=== PATIENT | female | born 1935 | race Hispanic/Latino ===

== ENCOUNTER 2018-10-13 21:45 | Emergency (ER) | payer MEDICARE ==
--- NOTE | 2018-10-13 22:13 | Emergency Department Report ---
HPI - General Time Seen by Provider: 10/13/18 22:00 - HPI HPI: Room 4 The patient is an 83-year-old female presenting with a chief complaint of weakness. The patient is currently at a [facility] states she's felt weak for the past 2-3 days diffusely. Patient states this evening she was unable to get off of her sofa so EMS was called. Patient denies pain of any type. Patient denies chest pain, shortness of breath, headache, nausea/vomiting/diarrhea or fever. Location: [See above] Duration: [See above] Quality: [See above] Severity: [See above] Modifying factors: [see above] Context: [see above] Mode of transportation: [not driving] ED Past Medical Hx - Past Medical History Hx Hypertension: Yes Hx Arthritis: Yes - Surgical History Additional Surgical History: hysterectomy, right hip - Social History Smoking Status: Never Smoker - Medications Home Medications: Home Medications Medication Instructions Recorded Confirmed Last Taken Type Darifenacin Hydrobromide [Enablex] 15 mg PO DAILY PRN #30 tab.er.24h 05/28/14 05/28/14 Unknown Rx Aspirin [Aspirin BABY CHEW TAB] 81 mg PO QDAY #30 tab.chew 06/04/14 Unknown Rx Atenolol [Tenormin] 100 mg PO DAILY #30 tablet 06/04/14 Unknown Rx Atorvastatin [Lipitor] 10 mg PO QHS #30 tab 06/04/14 Unknown Rx Clopidogrel [Plavix] 75 mg PO QDAY #30 tablet 06/04/14 Unknown Rx Losartan [Cozaar] 25 mg PO QPM #30 tablet 06/04/14 Unknown Rx Spironolactone [Aldactone] 50 mg PO QDAY #30 tablet 06/04/14 Unknown Rx amLODIPine [Norvasc] 5 mg PO DAILY #30 tablet 06/04/14 Unknown Rx ED Review of Systems ROS: Stated complaint: GENERAL WEAKNESS Other details as noted in HPI Constitutional: weakness Eyes: denies: eye pain ENT: denies: throat pain Respiratory: denies: shortness of breath Cardiovascular: denies: chest pain Endocrine: no symptoms reported Gastrointestinal: denies: abdominal pain, nausea, vomiting, diarrhea Genitourinary: denies: dysuria Musculoskeletal: back pain Neurological: denies: headache Physical Exam - Physical Exam Physical Exam: GENERAL: The patient is well-developed well-nourished female lying on stretcher not appearing to be in acute distress. [] HEENT: Normocephalic. Atraumatic. Extraocular motions are intact. Patient has moist mucous membranes. NECK: Supple. Trachea midline CHEST/LUNGS: Clear to auscultation. There is no respiratory distress noted. HEART/CARDIOVASCULAR: Regular. There is no tachycardia. There is no gallop rub or murmur. ABDOMEN: Abdomen is soft, nontender. Patient has normal bowel sounds. There is no abdominal distention. SKIN: There is no rash. There is no edema. There is no diaphoresis. NEURO: The patient is awake, alert, and oriented. The patient is cooperative. The patient has no focal neurologic deficits. The patient has normal speech MUSCULOSKELETAL: There is no evidence of acute injury. ED Course - Reevaluation(s) Reevaluation #1: 10/14/18 00:33 Patient states she is currently feeling better ED Medical Decision Making - Lab Data Result diagrams: 10/13/18 22:39 10/13/18 22:39 Laboratory Tests 10/13/18 10/13/18 10/13/18 22:31 22:39 22:39 WBC 12.3 H RBC 4.19 Hgb 11.3 Hct 33.9 MCV 81 MCH 27 L MCHC 33 RDW 15.7 H Plt Count 231 Lymph % (Auto) 25.8 [place] % (Auto) 7.1 Eos % (Auto) 0.2 Baso % (Auto) 0.7 Lymph # 3.2 [place] # 0.9 H Eos # 0.0 Baso # 0.1 Seg Neutrophils % 66.2 Seg Neutrophils # 8.2 H Sodium 138 Potassium 4.2 Chloride 100.9 Carbon Dioxide 26 Anion Gap 15 BUN 22 H Creatinine 0.9 Estimated GFR 60 BUN/Creatinine Ratio 24 Glucose 115 H Calcium 9.3 Magnesium 2.00 Total Bilirubin 0.60 AST 16 ALT 9 Alkaline Phosphatase 96 Ammonia Total Creatine Kinase 64 CK-MB (CK-2) 1.4 CK-MB (CK-2) Rel Index 2.1 Troponin T < 0.010 Total Protein 7.9 Albumin 3.7 L Albumin/Globulin Ratio 0.9 TSH Free T4 Urine Color Yellow Urine Turbidity Clear Urine pH 5.0 Ur Specific [place] 1.021 Urine Protein <15 mg/dl Urine Glucose (UA) Neg Urine Ketones 20 Urine Blood Neg Urine Nitrite Neg Urine Bilirubin Neg Urine Urobilinogen < 2.0 Ur Leukocyte Esterase Neg Urine WBC (Auto) < 1.0 Urine RBC (Auto) 1.0 U Epithel Cells (Auto) < 1.0 Urine Mucus 2+ 10/13/18 10/13/18 22:39 22:39 WBC RBC Hgb Hct MCV MCH MCHC RDW Plt Count Lymph % (Auto) [place] % (Auto) Eos % (Auto) Baso % (Auto) Lymph # [place] # Eos # Baso # Seg Neutrophils % Seg Neutrophils # Sodium Potassium Chloride Carbon Dioxide Anion Gap BUN Creatinine Estimated GFR BUN/Creatinine Ratio Glucose Calcium Magnesium Total Bilirubin AST ALT Alkaline Phosphatase Ammonia 21.0 L Total Creatine Kinase CK-MB (CK-2) CK-MB (CK-2) Rel Index Troponin T Total Protein Albumin Albumin/Globulin Ratio TSH 1.730 Free T4 1.10 Urine Color Urine Turbidity Urine pH Ur Specific [place] Urine Protein Urine Glucose (UA) Urine Ketones Urine Blood Urine Nitrite Urine Bilirubin Urine Urobilinogen Ur Leukocyte Esterase Urine WBC (Auto) Urine RBC (Auto) U Epithel Cells (Auto) Urine Mucus - EKG Data -: EKG Interpreted by Tn EKG shows normal: sinus rhythm Rate: normal - EKG Data When compared to previous EKG there are: no significant change Interpretation: unchanged when compared t (05/25/2014) - Differential Diagnosis symptomatic anemia, dehydration, hyponatremia, ACS Critical care attestation.: If time is entered above; I have spent that time in minutes in the direct care of this critically ill patient, excluding procedure time. ED Disposition Clinical Impression: Dehydration, Abnormal [id number] ratio Disposition: -01 TO HOME OR SELFCARE Is pt being admited?: No Does the pt Need Aspirin: No Condition: Stable Additional Instructions: Return to the emergency department immediately should you develop worsening symptoms, fever, inability to tolerate food or liquid or any other concerns. Referrals: PRIMARY CARE, [Primary Care Provider] - 3-5 Days Time of Disposition: 00:42
[2018-10-13 22:54] LABS: Basophils # (Auto) 0.1 K/mm3 (0.0-0.1); Basophils % (Auto) 0.7 % (0.0-1.8); Eosinophils % (Auto) 0.2 % (0.0-4.3); Hematocrit 33.9 % (30.3-42.9); Hemoglobin 11.3 gm/dl (10.1-14.3); Lymphocytes # (Auto) 3.2 K/mm3 (1.2-5.4); Lymphocytes % (Auto) 25.8 % (13.4-35.0); Mean Corpuscular HGB Conc 33 % (30-34); Mean Corpuscular Volume 81 fl (79-97); Monocytes # (Auto) 0.9 K/mm3 (0.0-0.8); Monocytes % (Auto) 7.1 % (0.0-7.3); Platelet Count 231 K/mm3 (140-440); Red Blood Count 4.19 M/mm3 (3.65-5.03); Red Cell Distribution Width 15.7 % (13.2-15.2)
[2018-10-13 23:05] LABS: Bilirubin,Urine NEG (Negative); Blood,Urine NEG (Negative); Color,Urine Yellow (Yellow); Mucus,Urine 2+ /HPF; Protein,Urine <15 mg/dL mg/dL (Negative); Urobilinogen,Urine < 2.0 mg/dL (<2.0); WBC,Urine < 1.0 /HPF (0.0-6.0)
[2018-10-13 23:11] LABS: Creatine Kinase MB 1.4 ng/mL (0.0-4.0)
[2018-10-13 23:12] LABS: Alanine Aminotransferase 9 units/L (7-56); Albumin 3.7 g/dL (3.9-5); BUN/Creatinine Ratio 24; Blood Urea Nitrogen 22 mg/dL (7-17); Calcium 9.3 mg/dL (8.4-10.2); Hemolysis Index 0
[2018-10-13] MEDS ORDERED: NORCO 5/325 PO ONE (23:15)
[2018-10-13] MEDS ORDERED: NORCO 5/325 ONE (23:19)
[2018-10-13 23:40] LABS: Free T4 (Free Thyroxine) 1.1 ng/dL (0.76-1.46)
[2018-10-14] MEDS ORDERED: NACL 0.9% 1000 ML 1,000 ML IV ONE (00:32)
--- NOTE | 2018-10-14 01:38 | XRay Report ---
Right elbow, 2 views INDICATION: Pain and weakness FINDINGS: The joint space is intact. No fracture or dislocation. No spurring or arthritic change. No joint effusion is seen. No olecranon bursal swelling or foreign body demonstrated. IMPRESSION: Negative elbow Signer Name: Garcia Pineda MD Signed: 10/14/2018 1:33 AM Workstation Name: [id number]
[2018-10-14 05:56] VITALS: BP 124/51
== END 2018-10-14 10:07 | disposition home or self-care (01) ==
LOC: ED 21:45
DX: E86.0 Dehydration (principal); R79.89 Other specified abnormal findings of blood chemistry; I10 Essential (primary) hypertension; M19.90 Unspecified osteoarthritis, unspecified site; Z90.710 Acquired absence of both cervix and uterus; Z79.899 Other long term (current) drug therapy
CPT/HCPCS: 36415; 73070; 80053; 81001; 82140; 82550; 82553; 83735; 84439; 84443; 84484; 85025; 93005; 93010; 96360; 99284; J7030